=== PATIENT | female | born 2000 | race African-American/Black ===

== ENCOUNTER 2021-08-15 08:54 | Emergency (ER) | payer MEDICAID, OTHER ==
[~2021-08-15] VITALS: Ht 157.5 cm; Wt 54.4 kg
[2021-08-15 09:10] VITALS: BP 130/74
--- NOTE | 2021-08-15 09:13 | ED Abdominal Pain ---
General Chief Complaint: Abdominal/GI Problems Stated Complaint: VOMITING; SOB Source of Information: Patient Exam Limitations: No Limitations History of Present Illness Date Seen by Provider: Aug 15, 2021 Time Seen by Provider: 09:13 Initial Comments Patient is a 20-year-old -[place] female who presents with headache, nausea and generalized malaise after drinking hard liquor last evening. Patient states she had 2 shots of alcohol and spent most of the evening nauseated and vomiting. She reports persistent nausea fatigue and headache this morning. She denies dizziness loss of consciousness chest pain palpitation shortness of breath abdominal pain. No other symptoms or complaints. Currently on her menstr ual period Timing/Duration: 12 Hours Severity/Quality: Moderate Location: Other (Epigastric) Radiation: No Radiation Activities at Onset: None Modifying Factors: Improves With Vomiting Allergies and Home Medications Allergies Coded Allergies: codeine (Verified Allergy, Unknown, 08/15/21) Patient Home Medication List Home Medication List Reviewed: Yes Review of Systems Review of Systems Constitutional: see HPI EENTM: See HPI Respiratory: See HPI Cardiovascular: See HPI Gastrointestinal: See HPI Genitourinary: See HPI Musculoskeletal: see HPI Skin: see HPI Psychiatric/Neurological: See HPI Endocrine: See HPI Hematologic/Lymphatic: See HPI All Other Systems Reviewed Negative Unless Noted: Yes Past Parjtjw-Gwwqji-Ctapqi Hx Patient Social History Tobacco Use?: Yes Physical Exam Vital Signs Vital Signs - First Documented 08/15/21 09:10 Temp 36.5 Pulse 60 Resp 16 B/P (MAP) 130/74 (92) Pulse Ox 99 O2 Delivery Room Air Capillary Refill : Height/Weight/BMI Height: '" Weight: lbs. oz. kg; BMI Method: General Appearance: WD/WN, no apparent distress, other (Anxious) Neck: full range of motion, supple Respiratory: lungs clear, normal breath sounds Cardiovascular: normal peripheral pulses, regular rate, rhythm Gastrointestinal: soft, other (Epigastric pain/tender) Extremities: normal range of motion, non-tender Back: normal inspection, no CVA tenderness Neurologic/Psychiatric: marker hand II-XII nml as tested, normal mood/affect, oriented x 3 Lymphatic: no adenopathy Focused Exam Sepsis Stage: Ruled Out Progress/Results/Core Measures Results/Orders My Orders Orders - SHANTANU LOPEZ DO Ondansetron Oral Dissolve Tab (Zofran (08/15/21 09:15) Famotidine Tablet (Pepcid Tablet) (08/15/21 09:15) Ns Iv 1000 Ml (Sodium Chloride 0.9%) (08/15/21 09:30) Medications Given in ED Current Medications Medications Dose Ordered Sig/Shanae Route Start Time Stop Time Status Last Admin Dose Admin Famotidine 20 mg ONCE ONCE PO 08/15/21 09:15 08/15/21 09:16 DC 08/15/21 09:25 20 MG Vital Signs/I&O 08/15/21 09:10 Temp 36.5 Pulse 60 Resp 16 B/P (MAP) 130/74 (92) Pulse Ox 99 O2 Delivery Room Air Departure Communication (Admissions) Patient with alcoholic gastritis and hangover syndrome. Abdomen soft nontender. Vital signs stable. IV fluids antiemetics and antacids given. Patient feels improved. She is able to get it with a steady gait. Recommendations are supportive care and limiting future alcohol consumption. Return precautions reviewed. Patient verbalizes understanding and agreement discharge instructions prior to departure. Impression Primary Impression: Acute gastritis Additional Impression: Headache Disposition: HOME, SELF-CARE Condition: Stable Departure-Patient Inst. Decision time for Depature: 10:18 Referrals: NO,LOCAL PHYSICIAN (PCP/Family) Primary Care Physician Patient Instructions: Gastritis ED, Headache, Adult Add. Discharge Instructions: You were evaluated in the emergency department for headache, nausea vomiting and abdominal discomfort. Please go home and rest and take Pepcid and Zofran as needed for stomach pain nausea and vomiting. Increase clear liquids and avoid/limit future alcohol consumption. All discharge instructions reviewed with patient and/or family. Voiced understanding. Scripts Ondansetron HCl (Zofran) 4 Mg Tab 4 MG PO Q8H, #10 TAB Prov: SHANTANU LOPEZ DO 08/15/21 Famotidine (Pepcid) 20 Mg Tablet 20 MG PO BID, #10 TAB Prov: SHANTANU LOPEZ DO 08/15/21 SHANTANU LOPEZ DO Aug 15, 2021 09:13
[2021-08-15] MEDS ORDERED: FAMOTIDINE 20 MG (PEPCID) TABLET PO ONE (09:15)
[2021-08-15] MEDS ORDERED: ONDANSETRON 4 MG (ZOFRAN) ORAL DISSOLVE TAB PO STA (09:15)
[2021-08-15] MEDS ORDERED: NS IV 1000 ML 1,000 ML IV SCH (09:30)
[2021-08-15] MEDS ORDERED: FAMO-119 PO (10:20)
[2021-08-15] MEDS ORDERED: ONDN4T PO (10:20)
== END 2021-08-15 10:24 | disposition home or self-care (01) ==
LOC: ER FS 08:56
DX: K29.70 Gastritis, unspecified, without bleeding (principal); R51.9 Headache, unspecified; Z72.0 Tobacco use